=== PATIENT | male | born 1930 | race Two or more races ===

== ENCOUNTER 2017-04-06 09:31 | Emergency (ER) | payer MEDICARE, OTHER ==
[~2017-04-06] VITALS: Ht 177.8 cm; Wt 83.0 kg
[2017-04-06 09:31] VITALS: BP 125/75
[~2017-04-06 09:31] MED LIST: AMLO5TAB4 PO; EZET10TA PO; LISI5TAB PO; OMEP40CA37 PO
[2017-04-06] MEDS ORDERED: MAGNESIUM CITRATE 296 ML BOTTLE PO ONE (10:30)
== END 2017-04-06 10:26 | disposition home or self-care (01) ==
LOC: ER 09:32
DX: K59.00 Constipation, unspecified (principal); I10 Essential (primary) hypertension; Z95.5 Presence of coronary angioplasty implant and graft
CPT/HCPCS: A4606; Z7610